=== PATIENT | female | born 1960 | race Caucasian/White ===

== ENCOUNTER 2022-05-11 08:18 | Inpatient (IN) | payer OTHER ==
[2022-05-11] MEDS ORDERED: morphine CARPU-JECT 4 MG/1 ML DISP.SYRIN IVPUSH ONE (09:32)
[2022-05-11] MEDS ORDERED: ONDANSETRON 4 MG/2 ML VIAL IVPUSH ONE (09:32)
[2022-05-11] MEDS ORDERED: SODIUM CHLORIDE 0.9% 500 ML INFUS.BAG IV ONE (09:32)
[2022-05-11] MEDS ORDERED: morphine SULFATE 4 MG/ML VIAL ONE (10:03)
[2022-05-11] MEDS ORDERED: ONDANSETRON 4 MG/2 ML VIAL ONE (10:03)
[2022-05-11 11:26] LABS: BASO % 0.3 % (0-2.0); EOS % 1.1 % (0-4.5); HEMATOCRIT 42.8 % (32.4-45.2); HEMOGLOBIN 14.4 GM/dL (10.7-15.3); LYMPH % 19.1 % (8-40); MCH 29.9 pg (25.7-33.7); MCHC 33.7 g/dl (32.0-36.0); MEAN CELL VOLUME 88.7 fl (80-96); MEAN PLT VOLUME 8.1 fl (7.5-11.1); MONO % 8.5 % (3.8-10.2); PLATELET COUNT 408 10^3/uL (134-434); RBC 4.83 M/mm3 (3.60-5.2); RDW 13.2 % (11.6-15.6)
[2022-05-11 11:35] LABS: BLOOD UREA NITROGEN 12.2 mg/dL (7-18); CALCIUM 9.8 mg/dL (8.5-10.1)
[2022-05-11 11:36] LABS: ALBUMIN 3.8 g/dl (3.4-5.0)
[2022-05-11 11:38] LABS: CREATININE 0.8 mg/dL (0.55-1.3)
[2022-05-11 11:40] LABS: BILIRUBIN,TOTAL 1.3 mg/dL (0.2-1); TOT PROT 7.5 g/dl (6.4-8.2)
[2022-05-11 13:12] LABS: PH,URINE 7.5 (5.0-8.0); URINE APPEARANCE CLEAR; URINE BILIRUBIN NEGATIVE (NEGATIVE); URINE COLOR YELLOW; URINE GLUCOSE (UA) NEGATIVE (NEGATIVE); URINE KETONE NEGATIVE (NEGATIVE); URINE LEUK ESTERASE NEGATIVE (NEGATIVE); URINE NITRITE NEGATIVE (NEGATIVE); URINE PROTEIN NEGATIVE (NEGATIVE)
[2022-05-11] MEDS ORDERED: morphine CARPU-JECT 2 MG/1 ML DISP.SYRIN IVPUSH ONE (16:55)
[2022-05-12 04:17] VITALS: BMI 42.3
[2022-05-12] MEDS ORDERED: ACETAMINOPHEN 1000 MG/100 ML BAG IVPB PRN (05:58)
[2022-05-12] MEDS: DEXTROSE 5%-NORMAL SALINE 1,000 ML IV SCH ×2 (07:30→17:31)
[2022-05-12 09:28] LABS: BASO % 0.5 % (0-2.0); EOS % 6.2 % (0-4.5); HEMATOCRIT 39.3 % (32.4-45.2); HEMOGLOBIN 13.2 GM/dL (10.7-15.3); LYMPH % 33.7 % (8-40); MCHC 33.5 g/dl (32.0-36.0); MEAN CELL VOLUME 89.4 fl (80-96); MONO % 6.9 % (3.8-10.2); NEUT % 52.7 % (42.8-82.8); PLATELET COUNT 279 10^3/uL (134-434); RBC 4.39 M/mm3 (3.60-5.2); RDW 13.4 % (11.6-15.6); WHITE BLOOD COUNT 8.7 K/mm3 (4.0-10.0)
[2022-05-12 09:36] LABS: INR 1.09 (0.83-1.09); PROTHROMBIN TIME (PATIENT) 12.6 SEC (9.7-13.0)
[2022-05-12 09:38] LABS: ACTIVATED PTT 24.2 SECONDS (25.2-36.5)
[2022-05-12 09:39] LABS: CALCIUM 8.9 mg/dL (8.5-10.1)
[2022-05-12 09:41] LABS: ALBUMIN 3.5 g/dl (3.4-5.0); BLOOD UREA NITROGEN 11.6 mg/dL (7-18); MAGNESIUM 2.1 mg/dL (1.8-2.4)
[2022-05-12 09:43] LABS: CREATININE 0.8 mg/dL (0.55-1.3); PHOSPHOROUS 3.4 mg/dL (2.5-4.9)
[2022-05-12 09:44] LABS: BILIRUBIN,TOTAL 1.5 mg/dL (0.2-1); TOT PROT 6.9 g/dl (6.4-8.2)
[2022-05-12] MEDS: ENOXAPARIN NA (PORCINE) 40 MG/0.4 ML DISP.SYRIN SQ SCH (10:38)
[2022-05-12 15:32] VITALS: RESP 20
[2022-05-12] MEDS ORDERED: MONTELUKAST NA 10 MG TABLET PO SCH (22:00)
[2022-05-12] MEDS ORDERED: MELATONIN 5 MG TABLETS PO ONE (22:14)
[2022-05-13] MEDS: DEXTROSE 5%-NORMAL SALINE 1,000 ML IV SCH (07:13)
[2022-05-13] MEDS ORDERED: HYDROCHLOROTHIAZIDE 12.5 MG CAPSULE (FP) PO SCH (10:00)
[2022-05-13] MEDS ORDERED: ATORVASTATIN CA 20 MG TABLET (FP) PO SCH ×3 (10:00→22:00)
[2022-05-13] MEDS ORDERED: [UNRECOGNIZED DRUG - OTHER] PO SCH (10:00)
[2022-05-13] MEDS ORDERED: FLUTICASONE PROP 0.05% 16 GM NASAL SPRAY NS SCH (10:00)
[2022-05-13] MEDS ORDERED: PANTOPRAZOLE 40 MG TABLET PO SCH (10:00)
[2022-05-13] MEDS ORDERED: HYDROCHLOROTHIAZIDE PO SCH (10:00)
[2022-05-13] MEDS ORDERED: ALPRAZolam 0.25 MG TABLET PO SCH (10:00)
[2022-05-13] MEDS ORDERED: MECLIZINE HCL 25 MG TABLET (FP) PO SCH (10:00)
[2022-05-13] MEDS ORDERED: LOSARTAN POTASSIUM 50 MG TABLET PO SCH (10:00)
[2022-05-13] MEDS ORDERED: ASPIRIN COATED 81 MG TABLET.EC PO SCH (10:00)
[2022-05-13] MEDS ORDERED: IRBESARTAN PO SCH (10:00)
[2022-05-13] MEDS: ENOXAPARIN NA (PORCINE) 40 MG/0.4 ML DISP.SYRIN SQ SCH (10:03)
[2022-05-13 10:42] LABS: BASO % 0.4 % (0-2.0); HEMATOCRIT 35.1 % (32.4-45.2); HEMOGLOBIN 11.8 GM/dL (10.7-15.3); LYMPH % 33.9 % (8-40); MCHC 33.6 g/dl (32.0-36.0); MEAN CELL VOLUME 89.3 fl (80-96); MEAN PLT VOLUME 8.1 fl (7.5-11.1); MONO % 10.2 % (3.8-10.2); NEUT % 46.5 % (42.8-82.8); PLATELET COUNT 287 10^3/uL (134-434); RBC 3.93 M/mm3 (3.60-5.2); RDW 13.3 % (11.6-15.6); WHITE BLOOD COUNT 5.6 K/mm3 (4.0-10.0)
[2022-05-13 11:12] LABS: BLOOD UREA NITROGEN 6.3 mg/dL (7-18)
[2022-05-13 11:14] LABS: CREATININE 0.7 mg/dL (0.55-1.3)
[2022-05-13] MEDS ORDERED: POTASSIUM CHLORIDE TABS 20 MEQ TABLET.ER (FP) PO ONE (11:45)
[2022-05-13 14:45] VITALS: BP 143/80; PULSE 73; TEMP 98.1
== END 2022-05-13 14:35 | disposition home or self-care (01) | DRG 247 ==
LOC: SUATTDRO 08:18 → JER 08:18 → JERBED 15:37 → J8W 05-12 03:01
PROVIDERS: ADMIT Internal Medicine; ATTEND Internal Medicine
PROC: 0D9670Z Drainage of Stomach with Drainage Device, Via Natural or Artificial Opening (ICD-10-PCS; principal; 2022-05-11)
DX: K56.600 Partial intestinal obstruction, unspecified as to cause (principal); E66.01 Morbid (severe) obesity due to excess calories; Z68.41 Body mass index [BMI] 40.0-44.9, adult; I10 Essential (primary) hypertension; J45.909 Unspecified asthma, uncomplicated
CPT/HCPCS: 36415; 71045-TC-FY; 71046-TC-FY; 74019-TC-FY; 74177-TC; 80048; 80053; 81003; 83735; 84100; 84484; 85025; 85610; 85730; 86850; 86900; 86901; 87077; 87086; 87186; 93005; 93010; 99285-25; C9803-CS; Q9967; U0003; U0005

== ENCOUNTER 2022-10-02 23:53 | Emergency (ER) | payer OTHER ==
[2022-10-02 23:57] VITALS: BP 175/100; PULSE 82; RESP 18; TEMP 97.4; BMI 41.1
[2022-10-03] MEDS ORDERED: morphine CARPU-JECT 4 MG/1 ML DISP.SYRIN IVPUSH ONE (00:29)
[2022-10-03] MEDS ORDERED: morphine SULFATE 4 MG/ML VIAL ONE (01:35)
[2022-10-03 01:42] LABS: BASO % 0.3 % (0-2.0); EOS % 0.7 % (0-4.5); HEMOGLOBIN 13.5 GM/dL (10.7-15.3); LYMPH % 12.8 % (8-40); MCH 29.1 pg (25.7-33.7); MCHC 33.7 g/dl (32.0-36.0); MEAN CELL VOLUME 86.5 fl (80-96); MEAN PLT VOLUME 7.5 fl (7.5-11.1); MONO % 5.4 % (3.8-10.2); NEUT % 80.8 % (42.8-82.8); PLATELET COUNT 355 10^3/uL (134-434); RBC 4.63 M/mm3 (3.60-5.2); RDW 13.4 % (11.6-15.6); WHITE BLOOD COUNT 9.2 K/mm3 (4.0-10.0)
[2022-10-03 01:48] LABS: INR 1.04 (0.83-1.09); PROTHROMBIN TIME (PATIENT) 12.1 SEC (9.7-13.0)
[2022-10-03 01:51] LABS: ACTIVATED PTT 32.4 SECONDS (25.2-36.5)
[2022-10-03 01:55] LABS: EPI CELLS 6 /uL (0-25.1); HYALINE CASTS 0 /uL (0-3.1); URINE APPEARANCE CLEAR; URINE BACTERIA 40 /uL (0-1359); URINE BILIRUBIN NEGATIVE (NEGATIVE); URINE COLOR YELLOW; URINE GLUCOSE (UA) NEGATIVE (NEGATIVE); URINE KETONE NEGATIVE (NEGATIVE); URINE LEUK ESTERASE 1+ (NEGATIVE); URINE NITRITE NEGATIVE (NEGATIVE); URINE PROTEIN NEGATIVE (NEGATIVE); URINE RBC 11 /uL (0-23.9); URINE UROBILINOGEN 0.2 mg/dL (0.2-1.0); URINE WBC 34 /uL (0-25.8)
[2022-10-03 02:04] LABS: CALCIUM 9.3 mg/dL (8.5-10.1)
[2022-10-03 02:05] LABS: ALBUMIN 3.7 g/dl (3.4-5.0)
[2022-10-03 02:08] LABS: CREATININE 0.8 mg/dL (0.55-1.3)
[2022-10-03 02:09] LABS: BILIRUBIN,TOTAL 0.8 mg/dL (0.2-1)
[2022-10-03 02:10] LABS: TOT PROT 7.7 g/dl (6.4-8.2)
[2022-10-03 02:14] LABS: BLOOD UREA NITROGEN 19.2 mg/dL (7-18)
[2022-10-03] MEDS ORDERED: ONDANSETRON 4 MG/2 ML VIAL IVPUSH ONE (03:30)
[2022-10-03] MEDS ORDERED: ONDANSETRON 4 MG/2 ML VIAL ONE (03:39)
== END 2022-10-03 04:37 | disposition home or self-care (01) ==
LOC: JER 23:53
PROC: 3E033GC Introduction of Other Therapeutic Substance into Peripheral Vein, Percutaneous Approach (ICD-10-PCS; principal; 2022-10-03)
PROC: 3E033GC Introduction of Other Therapeutic Substance into Peripheral Vein, Percutaneous Approach (ICD-10-PCS; 2022-10-03)
DX: R10.9 Unspecified abdominal pain (principal); Z20.822 Contact with and (suspected) exposure to COVID-19
CPT/HCPCS: 0241U-QW; 36415; 71045-TC-FY; 74177-TC; 80053; 81003; 83605; 83690; 84484; 85025; 85610; 85730; 87086; 93005; 93010; 99285-25

== ENCOUNTER 2023-09-23 21:13 | Inpatient (IN) | payer OTHER ==
[2023-09-23 21:17] VITALS: BMI 43.7
[2023-09-23 22:35] LABS: BASO % 0.5 % (0-2.0); EOS % 7.2 % (0-4.5); HEMATOCRIT 39.6 % (32.4-45.2); HEMOGLOBIN 13.1 GM/dL (10.7-15.3); LYMPH % 29.6 % (8-40); MCH 29.2 pg (25.7-33.7); MCHC 33.2 g/dl (32.0-36.0); MEAN PLT VOLUME 7.6 fl (7.5-11.1); MONO % 9.2 % (3.8-10.2); NEUT % 53.5 % (42.8-82.8); PLATELET COUNT 372 10^3/uL (134-434); WHITE BLOOD COUNT 8.6 K/mm3 (4.0-10.0)
[2023-09-23] MEDS ORDERED: ACETAMINOPHEN INJECTION 100 ML IVPB ONE (22:42)
[2023-09-23] MEDS ORDERED: ONDANSETRON 4 MG/2 ML VIAL ONE (22:42)
[2023-09-23] MEDS ORDERED: FAMOTIDINE 20 MG/50 ML IVPB 20 MG/50 ML MG IVPB ONE (22:42)
[2023-09-23 22:52] LABS: CALCIUM 9.7 mg/dL (8.5-10.1)
[2023-09-23 22:53] LABS: ALBUMIN 3.6 g/dl (3.4-5.0); BLOOD UREA NITROGEN 18.7 mg/dL (7-18)
[2023-09-23 22:56] LABS: BILIRUBIN,TOTAL 0.7 mg/dL (0.2-1); CREATININE 0.8 mg/dL (0.55-1.3); TOT PROT 7.8 g/dl (6.4-8.2)
[2023-09-23] MEDS: ACETAMINOPHEN 1000 MG/100 ML BAG IVPB ONE (22:58)
[2023-09-23] MEDS: FAMOTIDINE 20 MG/50 ML IVPB 20 MG/50 ML MG IVPB ONE (22:58)
[2023-09-23] MEDS: ONDANSETRON 4 MG/2 ML VIAL IVPUSH ONE (22:58)
[2023-09-23] MEDS ORDERED: morphine SULFATE 4 MG/ML VIAL ONE (23:02)
[2023-09-23] MEDS: morphine CARPU-JECT 4 MG/1 ML DISP.SYRIN IVPUSH ONE (23:06)
[2023-09-24] MEDS ORDERED: IBUPROFEN 200 MG TABLET PO PRN (12:03)
[2023-09-24 13:36] LABS: URIC ACID 4.6 mg/dL (2.6-7.2)
[2023-09-24] MEDS: IBUPROFEN 400 MG TABLET (FP) PO PRN (14:17)
[2023-09-24] MEDS: IBUPROFEN 200 MG TABLET PO ONE (14:18)
[2023-09-24 14:36] VITALS: BP 120/54; PULSE 83; RESP 18; TEMP 97.9
== END 2023-09-24 16:30 | disposition home or self-care (01) | DRG 249 ==
LOC: JER 21:13 → JERBED 09-24 02:51 → J8W 09-24 08:40
PROVIDERS: ADMIT Internal Medicine; ATTEND Internal Medicine
DX: K52.9 Noninfective gastroenteritis and colitis, unspecified (principal); I10 Essential (primary) hypertension; I73.9 Peripheral vascular disease, unspecified; E66.01 Morbid (severe) obesity due to excess calories; Z68.41 Body mass index [BMI] 40.0-44.9, adult
CPT/HCPCS: 36415; 71045-TC-FY; 74177-TC; 80053; 83605; 83690; 84484; 84550; 85025; 86140; 93005; 93010; 99285-25; J0131

== ENCOUNTER 2024-04-18 21:33 | Inpatient (IN) | payer OTHER ==
[2024-04-18] MEDS ORDERED: morphine SULFATE 4 MG/ML VIAL ONE (23:12)
[2024-04-18 23:14] LABS: BASO % 0.6 % (0-2.0); EOS % 1.2 % (0-4.5); HEMATOCRIT 39.3 % (32.4-45.2); HEMOGLOBIN 13.3 GM/dL (10.7-15.3); LYMPH % 17.3 % (8-40); MCH 29.8 pg (25.7-33.7); MCHC 33.8 g/dl (32.0-36.0); MEAN CELL VOLUME 88.2 fl (80-96); MEAN PLT VOLUME 7.7 fl (7.5-11.1); MONO % 5.9 % (3.8-10.2); PLATELET COUNT 370 10^3/uL (134-434); RBC 4.45 M/mm3 (3.60-5.2); RDW 13.5 % (11.6-15.6); WHITE BLOOD COUNT 8.8 K/mm3 (4.0-10.0)
[2024-04-18] MEDS: morphine CARPU-JECT 4 MG/1 ML DISP.SYRIN IVPUSH ONE (23:22)
[2024-04-18 23:25] LABS: INR 0.97 (0.83-1.09); PROTHROMBIN TIME (PATIENT) 11.2 SEC (9.7-13.0)
[2024-04-18 23:28] LABS: ACTIVATED PTT 30.2 SECONDS (25.2-36.5)
[2024-04-18 23:31] LABS: POTASSIUM 4.1 mmol/L (3.5-5.1)
[2024-04-18 23:32] LABS: PH,URINE 8.5 (5.0-8.0); URINE APPEARANCE CLEAR; URINE BILIRUBIN NEGATIVE (NEGATIVE); URINE COLOR YELLOW; URINE GLUCOSE (UA) NEGATIVE (NEGATIVE); URINE KETONE NEGATIVE (NEGATIVE); URINE LEUK ESTERASE NEGATIVE (NEGATIVE); URINE NITRITE NEGATIVE (NEGATIVE); URINE PROTEIN NEGATIVE (NEGATIVE)
[2024-04-18 23:33] LABS: ALBUMIN 3.6 g/dl (3.4-5.0); BLOOD UREA NITROGEN 15.5 mg/dL (7-18); CALCIUM 9.5 mg/dL (8.5-10.1)
[2024-04-18 23:38] LABS: TOT PROT 7.4 g/dl (6.4-8.2)
[2024-04-19] MEDS: LACTATED RINGERS SOLUTION 1000 ML INFUS.BAG IV ONE (01:00)
[2024-04-19 05:04] VITALS: BMI 47.0
[2024-04-19] MEDS ORDERED: ACETAMINOPHEN 1000 MG/100 ML BAG IVPB PRN (05:40)
[2024-04-19 08:06] LABS: HEMATOCRIT 37.6 % (32.4-45.2); HEMOGLOBIN 12.8 GM/dL (10.7-15.3); MCH 30.1 pg (25.7-33.7); MEAN CELL VOLUME 88.5 fl (80-96); MEAN PLT VOLUME 8.1 fl (7.5-11.1); PLATELET COUNT 339 10^3/uL (134-434); RBC 4.25 M/mm3 (3.60-5.2); RDW 13.8 % (11.6-15.6); WHITE BLOOD COUNT 8.9 K/mm3 (4.0-10.0)
[2024-04-19 08:17] LABS: ALBUMIN 3.3 g/dl (3.4-5.0); BLOOD UREA NITROGEN 12.4 mg/dL (7-18); MAGNESIUM 2.5 mg/dL (1.8-2.4)
[2024-04-19 08:20] LABS: CREATININE 0.8 mg/dL (0.55-1.3); PHOSPHOROUS 3.2 mg/dL (2.5-4.9)
[2024-04-19 08:21] LABS: BILIRUBIN,TOTAL 1.2 mg/dL (0.2-1)
[2024-04-19 08:22] LABS: TOT PROT 6.9 g/dl (6.4-8.2)
[2024-04-19] MEDS: SODIUM CHLORIDE 1,000 ML IV SCH (09:10)
[2024-04-19] MEDS: FAMOTIDINE 20 MG/50 ML IVPB 20 MG/50 ML MG IVPB ONE (23:10)
[2024-04-20 08:35] LABS: HEMATOCRIT 36.3 % (32.4-45.2); HEMOGLOBIN 11.9 GM/dL (10.7-15.3); MCH 29.8 pg (25.7-33.7); MCHC 32.9 g/dl (32.0-36.0); MEAN CELL VOLUME 90.7 fl (80-96); MEAN PLT VOLUME 7.8 fl (7.5-11.1); MONO % 8.7 % (3.8-10.2); NEUT % 41.9 % (42.8-82.8); PLATELET COUNT 305 10^3/uL (134-434); RDW 13.5 % (11.6-15.6); WHITE BLOOD COUNT 5.9 K/mm3 (4.0-10.0)
[2024-04-20 08:36] LABS: BASO % 0.5 % (0-2.0); EOS % 10.9 % (0-4.5)
[2024-04-20 08:49] LABS: POTASSIUM 4.1 mmol/L (3.5-5.1)
[2024-04-20 08:54] LABS: CALCIUM 8.8 mg/dL (8.5-10.1)
[2024-04-20 08:55] LABS: ALBUMIN 3.1 g/dl (3.4-5.0)
[2024-04-20 08:58] LABS: BILIRUBIN,TOTAL 1.4 mg/dL (0.2-1); CREATININE 0.8 mg/dL (0.55-1.3); TOT PROT 6.5 g/dl (6.4-8.2)
[2024-04-20] MEDS ORDERED: LORATADINE 10 MG TABLET PO PRN (13:30)
[2024-04-20] MEDS: PARoxetine HCL 20 MG TABLET PO SCH (14:20)
[2024-04-20] MEDS: FAMOTIDINE 20 MG TABLET PO SCH (14:20)
[2024-04-20 20:58] VITALS: RESP 18
[2024-04-21 06:16] VITALS: BP 125/51; PULSE 65; TEMP 97.9
[2024-04-21] MEDS: ATORVASTATIN CA 20 MG TABLET (FP) PO SCH (10:20)
[2024-04-21] MEDS: ALPRAZolam 0.25 MG TABLET PO SCH (10:24)
[2024-04-21] MEDS: ASPIRIN COATED 81 MG TABLET.EC PO SCH (10:24)
[2024-04-21] MEDS: MONTELUKAST NA 10 MG TABLET PO SCH (10:24)
[2024-04-21] MEDS: ENOXAPARIN NA (PORCINE) 40 MG/0.4 ML DISP.SYRIN SQ SCH (10:25)
== END 2024-04-21 12:55 | disposition home or self-care (01) | DRG 247 ==
LOC: JER 21:33 → JERBED 04-19 00:55 → J7W 04-19 03:50
PROVIDERS: ADMIT Internal Medicine; ATTEND Internal Medicine
DX: K56.699 Other intestinal obstruction unspecified as to partial versus complete obstruction (principal); I10 Essential (primary) hypertension; E66.01 Morbid (severe) obesity due to excess calories; I73.9 Peripheral vascular disease, unspecified; Z68.42 Body mass index [BMI] 45.0-49.9, adult
CPT/HCPCS: 36415; 71045-TC-FY; 74177-TC; 80053; 81003; 83605; 83690; 83735; 84100; 84484; 85025; 85027; 85610; 85730; 86850; 86900; 86901; 87086; 93005; 93010; 99285-25; Q9967

== ENCOUNTER 2024-10-21 20:06 | Inpatient (IN) | payer OTHER ==
[2024-10-21 20:14] VITALS: BMI 40.3
[2024-10-21] MEDS ORDERED: ONDANSETRON 4 MG/2 ML VIAL ONE (21:02)
[2024-10-21] MEDS ORDERED: ACETAMINOPHEN INJECTION 100 ML ONE (21:02)
[2024-10-21 21:33] LABS: ABSOLUTE IMMATURE GRANULOCYTES 0.05 x10^3/uL (0.0-0.031); BASOPHILS # 0.04 x10^3/uL (0.01-0.08); EOSINOPHILS # 0.23 x10^3/uL (0.04-0.36); HEMATOCRIT 39.4 % (34.1-44.9); MEAN CELL VOLUME 88.5 fl (79.4-94.8); MEAN PLT VOLUME 9.7 fl (9.4-12.3); MONOCYTE # 0.71 x10^3/uL (0.24-0.86); MONOCYTE % 6.3 % (4.7-12.5); PLATELET COUNT 354 x10^3/uL (182-369); RDW 12.8 % (12.4-16.4)
[2024-10-21 21:38] LABS: INR 1.03 (0.83-1.09); PROTHROMBIN TIME (PATIENT) 11.2 SEC (9.7-13.0)
[2024-10-21 21:41] LABS: ACTIVATED PTT 28.7 SECONDS (25.2-36.5)
[2024-10-21] MEDS: LACTATED RINGERS SOLUTION 1000 ML INFUS.BAG IV ONE (21:45)
[2024-10-21] MEDS: ONDANSETRON 4 MG/2 ML VIAL IVPUSH ONE (21:45)
[2024-10-21] MEDS: ACETAMINOPHEN 1000 MG/100 ML BAG IVPB ONE (21:45)
[2024-10-21 22:00] LABS: POTASSIUM 4.2 mmol/L (3.5-5.1)
[2024-10-21 22:02] LABS: CALCIUM 9.6 mg/dL (8.5-10.1)
[2024-10-21 22:03] LABS: ALBUMIN 3.8 g/dl (3.4-5.0); MAGNESIUM 1.9 mg/dL (1.8-2.4)
[2024-10-21 22:07] LABS: BILIRUBIN,TOTAL 0.9 mg/dL (0.2-1); TOT PROT 8.1 g/dl (6.4-8.2)
[2024-10-22] MEDS ORDERED: ACETAMINOPHEN 1000 MG/100 ML BAG IVPB PRN (01:04)
[2024-10-22] MEDS ORDERED: METOPROLOL TARTRATE 5 MG/5 ML VIAL IVPUSH PRN (01:04)
[2024-10-22] MEDS ORDERED: ONDANSETRON 4 MG/2 ML VIAL IVPUSH PRN (01:06)
[2024-10-22] MEDS: D5-1/2NS+20 MEQ KCL - 20 MEQ/1,000 ML INFUS.BAG IV SCH ×2 (02:22→16:50)
[2024-10-22] MEDS: ENOXAPARIN NA (PORCINE) 40 MG/0.4 ML DISP.SYRIN SQ SCH (02:22)
[2024-10-22] MEDS: PANTOPRAZOLE SODIUM 40 MG VIAL IVPUSH SCH (02:22)
[2024-10-22 07:23] LABS: ABSOLUTE IMMATURE GRANULOCYTES 0.02 x10^3/uL (0.0-0.031); BASOPHILS # 0.03 x10^3/uL (0.01-0.08); EOSINOPHIL % 3.5 % (0.7-5.8); EOSINOPHILS # 0.26 x10^3/uL (0.04-0.36); HEMATOCRIT 35.5 % (34.1-44.9); HEMOGLOBIN 11.4 g/dL (11.2-15.7); MCHC 32.1 g/dl (32.2-35.5); MEAN CELL VOLUME 89.6 fl (79.4-94.8); MEAN PLT VOLUME 9.7 fl (9.4-12.3); MONOCYTE % 6.8 % (4.7-12.5); PLATELET COUNT 311 x10^3/uL (182-369); RDW 12.9 % (12.4-16.4)
[2024-10-22 07:44] LABS: POTASSIUM 4.3 mmol/L (3.5-5.1)
[2024-10-22 07:50] LABS: BLOOD UREA NITROGEN 13.6 mg/dL (7-18)
[2024-10-22 07:53] LABS: CREATININE 0.9 mg/dL (0.55-1.3)
[2024-10-23 07:51] LABS: ABSOLUTE IMMATURE GRANULOCYTES 0.01 x10^3/uL (0.0-0.031); BASOPHILS # 0.02 x10^3/uL (0.01-0.08); EOSINOPHIL % 10.8 % (0.7-5.8); EOSINOPHILS # 0.63 x10^3/uL (0.04-0.36); HEMATOCRIT 39.2 % (34.1-44.9); HEMOGLOBIN 12.7 g/dL (11.2-15.7); MCHC 32.4 g/dl (32.2-35.5); MEAN CELL VOLUME 90.5 fl (79.4-94.8); MONOCYTE # 0.45 x10^3/uL (0.24-0.86); MONOCYTE % 7.7 % (4.7-12.5); PLATELET COUNT 333 x10^3/uL (182-369); RDW 12.9 % (12.4-16.4)
[2024-10-23 08:09] LABS: POTASSIUM 4.1 mmol/L (3.5-5.1)
[2024-10-23 08:10] LABS: CALCIUM 9.3 mg/dL (8.5-10.1)
[2024-10-23 08:11] LABS: BLOOD UREA NITROGEN 10.5 mg/dL (7-18); MAGNESIUM 2.1 mg/dL (1.8-2.4)
[2024-10-23 08:14] LABS: CREATININE 0.9 mg/dL (0.55-1.3); PHOSPHOROUS 3.2 mg/dL (2.5-4.9)
[2024-10-23] MEDS ORDERED: ACETAMINOPHEN 325 MG TABLET (FP) PO PRN (12:16)
[2024-10-23] MEDS ORDERED: ARTIFICIAL TEARS OPHTHALMIC DROPS OU PRN (12:19)
[2024-10-23] MEDS: D5-1/2NS+20 MEQ KCL - 20 MEQ/1,000 ML INFUS.BAG IV SCH (12:34)
[2024-10-23] MEDS: LOSARTAN POTASSIUM 50 MG TABLET PO SCH (13:04)
[2024-10-23] MEDS: PARoxetine HCL 20 MG TABLET PO SCH (13:04)
[2024-10-23] MEDS: PANTOPRAZOLE 40 MG TABLET PO SCH (13:04)
[2024-10-23] MEDS: ATORVASTATIN CA 20 MG TABLET (FP) PO SCH (21:12)
[2024-10-24 07:46] LABS: POTASSIUM 5.5 mmol/L (3.5-5.1)
[2024-10-24 07:54] LABS: CALCIUM 8.4 mg/dL (8.5-10.1)
[2024-10-24 07:55] LABS: BLOOD UREA NITROGEN 10.4 mg/dL (7-18)
[2024-10-24 07:58] LABS: CREATININE 0.9 mg/dL (0.55-1.3)
[2024-10-24 08:08] LABS: ABSOLUTE IMMATURE GRANULOCYTES 0.02 x10^3/uL (0.0-0.031); BASOPHILS # 0.03 x10^3/uL (0.01-0.08); EOSINOPHILS # 0.55 x10^3/uL (0.04-0.36); HEMOGLOBIN 11.8 g/dL (11.2-15.7); MCHC 31.9 g/dl (32.2-35.5); MEAN CELL VOLUME 91.1 fl (79.4-94.8); MEAN PLT VOLUME 9.9 fl (9.4-12.3); MONOCYTE # 0.66 x10^3/uL (0.24-0.86); MONOCYTE % 10.8 % (4.7-12.5); PLATELET COUNT 307 x10^3/uL (182-369); RDW 12.8 % (12.4-16.4)
[2024-10-24 08:54] VITALS: BP 145/65; PULSE 79; RESP 18; TEMP 98.1
== END 2024-10-24 10:46 | disposition home or self-care (01) | DRG 247 ==
LOC: JER 20:06 → JERBED 10-22 01:03 → J7W 10-22 02:58
PROVIDERS: ADMIT Internal Medicine; ATTEND Internal Medicine
DX: K56.609 Unspecified intestinal obstruction, unspecified as to partial versus complete obstruction (principal); I10 Essential (primary) hypertension; I73.9 Peripheral vascular disease, unspecified; E66.01 Morbid (severe) obesity due to excess calories; Z68.42 Body mass index [BMI] 45.0-49.9, adult
CPT/HCPCS: 36415; 71045-TC-FY; 74019-TC-FY; 74177-TC; 80048; 80053; 83605; 83735; 84100; 84484; 85025; 85610; 85730; 86850; 86900; 86901; 93005; 93010; 99285-25; J0131; Q9967